=== PATIENT | male | born 1950 | race Caucasian/White ===

== ENCOUNTER → 2019-10-03 10:22 | Outpatient (CLI) | payer MEDICARE, BC | END | disposition home or self-care (01) | LOC: D.HCCARDIO 10-01 11:00 | PROVIDERS: ATTEND Internal Medicine Cardiovascular Disease | DX: R07.9 Chest pain, unspecified (principal) ==

== ENCOUNTER 2019-10-11 10:48 | Outpatient (CLI) | payer MEDICARE, BC ==
[~2019-10-11] VITALS: Ht 185.4 cm; Wt 81.4 kg
--- NOTE | ~2019-10-11 | HEMODYNAMI ---
PATIENT:KHANH WILEY MEDICAL RECORD: [id number] : 46 LOCATION:[facility] ADMISSION DATE: 10/11/19 Generatedon:10/11/201913:32 Patient name: KHANH WILEY Patient #: [id number] SSN: [id number] : 1950 Date of study: 10/11/2019 Page: Of Hemodynamic Procedure Report Patient Data Patient Demographics Procedure consent was obtained First Name: KHANH Gender: Male Last Name: SAURABH : 1950 Middle Initial: SAMAN Age: 68 year(s) Patient #: [id number] Race: Unknown SSN: [id number] Additional ID: [id number] Contact details Address: [address] [place] [address] State: [place] City: [place] Zip code: [address] Past Medical History Allergies: No known allergies Admission Admission Data Admission Date: 10/11/2019 Admission Time: 10:48 Lab Results Lab Result Date: 10/11/2019 Lab Result Time: 0:00 Biochemistry Name Units Result Min Max BUN mg/dl 19 --(----)*- 7 18 Creatinine mg/dl 0.9 --(-*--)-- 0.6 1.3 eGFR ml/min 88.93932 -*(----)-- 90 120 NONAFRICAN CBC Name Units Result Min Max Hematocrit % 45.9 --(-*--)-- 42 54 Hemoglobin g/dl 15.1 --(-*--)-- 13.5 17.5 Procedure Procedure Types Cath Procedure Diagnostic Procedure C [facility] w/Coronaries Sedation Charges Moderate Sedation up to 15 minutes Procedure Description Procedure Date Procedure Date: 10/11/2019 Procedure Start Time: 13:19 Procedure End Time: 13:30 Procedure Staff Name Function Baljit Rubio MD Performing Physician Edna Perera RN Nurse Barby Ochoa RT Scrub Saskia Drew RT Monitor Procedure Data Cath Procedure Fluoroscopy Diagnostic fluoroscopy Total fluoroscopy Time: 1.4 time: 1.4 min min Diagnostic fluoroscopy Total fluoroscopy dose: 300 dose: 300 mGy mGy Contrast Material Contrast Material Type Amount (ml) Isovue 300 48 Entry Location Entry Primary Successful Side Size Upsize Upsize Entry Closure Collins ccessful Closure Location (Fr) 1 (Fr) 2 (Fr) Remarks Device Remarks Radial Right 6 Fr Mechanical artery Short Compression Estimated blood loss: 5 ml Diagnostic catheters Device Type Used For End Catheter Placement DIAGNOSTIC [place] 110cm 5 Procedure Fr catheter ([id number]) Procedure Complications No complications Procedure Medications Medication Administration Route Dosage 0.9% NaCl I.V. 100 ml/hr Oxygen etCO2 Nasal cannula 2 l/min Lidocaine 2% added to field 20 Heparin Flush Bag added to field 2 bags (1000units/500ml NS) Radial Cocktail added to field 1 syringe (Verapamil 2mg/Nitro 400mcg/Heparin 1500units) Versed I.V. 2 mg Fentanyl I.V. 50 mcg Hemodynamics Rest HGB: 15.1 (g/dl) Heart Rate: 56 (bpm) Pressure Samples Time Site Value (mmHg) Purpose Heart Use Rate(bpm) 13:23 LV 93/-14,-6 Snapshot 66 13:23 LV 94/1,2 Snapshot 66 13:23 AO 91/65(78) Pullback 66 13:23 LV 82/2,8 Pullback 66 Gradients Valve Time Site 1 Site 2 Mean SEP/DFP Peak To Heart Use (mmHg) (sec/min) Peak Rate (mmHg) (bpm) Aortic 13:23 LV AO 0 66 82/2,8 91/65(78) Calculations Valve P-P Mean Valve Index Valve Source Name Gradient Area Flow (cm2) Aortic 0 0 Snapshots Pre Cath Intra NCS Post Cath Vital Signs Time Heart Resp SPO2 etCO2 NIBP Rhythm Pain Sedation Rate (ipm) (%) (mmHg) (mmHg) Status Level (bpm) 13:06:01 61 15 100 31.8 110/64(88) NSR 0 (11) 10(A) , No pain 13:10:10 53 27 96 29.6 114/62(87) SB 0 (11) 10(A) , No pain 13:14:22 55 10 97 30.4 107/59(82) SB 0 (11) 10(A) , No pain 13:18:30 60 17 98 26 113/64(89) NSR 0 (11) 9(A) , No pain 13:22:46 68 16 99 13.7 92/49(75) NSR 0 (11) 9(A) , No pain 13:26:50 57 20 97 19.9 112/59(83) SB 0 (11) 10(A) , No pain 13:31:02 55 7 98 0 111/59(82) SB 0 (11) 10(A) , No pain Medications Time Medication Route Dose Verified Delivered Reason Notes E ffectiveness by by 13:05:44 0.9% NaCl I.V. 100 Baljit Edna used for ml/hr RamiroKhanh Perera procedure MD GIBSON 13:05:50 Oxygen etCO2 2 l/min Baljit Mataa used for Nasal Ramiro Trever procedure cannula MD GIBSON 13:05:54 Lidocaine 2% added 20ml Baljit Baljit for local to vial [facility] anesthetic field MD MAJOR 13:05:58 Heparin Flush added 2 bags Baljit Smiley used for Bag to [facility] procedure (1000units/500ml field MD MAJOR NS) 13:06:03 Radial Cocktail added 1 Baljit Baljit used for ([facility]amil to [facility]/Nitro field MD MAJOR 400mcg/Heparin 1500units) 13:14:05 Versed I.V. 2 mg Baljit Edna for [facility] Khanh Perera sedation MD GIBSON 13:14:13 Fentanyl I.V. 50 mcg Baljit Bishop for [facility] Khanh Perera sedation MD GIBSONfiscal officer Log Time Note 12:37:18 Informed consent obtained and on chart 12:39:32 Procedure Status Elective Heart Cath (OP). 12:39:33 Time tracking: Regular hours (M-F 7:00 - 5:00) 12:39:38 Plan of Care:Hemodynamics will remain stable., Cardiac rhythm will remain stable., Comfort level will be maintained., Respiratory function will remain adequate., Patient/ family verbilizes understanding of procedure., Procedure tolerated without complication., Recovers from procedure without complications.. 12:49:25 Patient allergic to No known allergies 12:50:10 Lab Result : BUN 19 mg/dl 12:50:10 Lab Result : Creatinine 0.9 mg/dl 12:50:10 Lab Result : eGFR NONAFRICAN 88.15794 ml/min 12:50:10 Lab Result : Hemoglobin 15.1 g/dl 12:50:10 Lab Result : Hematocrit 45.9 % 12:50:18 Barby Ochoa RT(R) sent for patient. Start room use. 13:04:52 Patient received from Pre/Post Procedure Room to CCL 1 Alert and oriented. Tansferred to table in Supine position. 13:04:52 Warm blankets applied, and omaira hugger turned on for patient comfort. 13:04:53 Correct patient and procedure confirmed by team. 13:04:53 ECG and BP/O2 sat monitors applied to patient. 13:04:54 Vital chart was started 13:04:58 Baseline sample Acquired. 13:05:01 Rhythm: sinus bradycardia 13:05:02 Full Disclosure recording started 13:05:09 H&P Date Dictated: 09/26/2019 Within 30 days and on chart., H&P Addendum completed by physician on day of procedure. (MUST COMPLETE FOR ALL OUTPATIENTS). 13:05:09 Pre-procedure instructions explained to patient. 13:05:10 Pre-op teaching completed and patient verbalized understanding. 13:05:12 Family AVAILABLE WITH PHONE CALL 13:05:28 Patient NPO since Midnight. 13:05:33 Is the patient allergic to Iodine/contrast media? No. 13:05:35 Is patient on blood thinner?No 13:05:39 Patient diabetic? No. 13:05:42 Previous problem with sedation/anesthesia? No ? 13:05:44 0.9% NaCl 100 ml/hr I.V. was administered by Edna Perera RN; used for procedure; Verbal order read back and verified. 13:05:50 Oxygen 2 l/min etCO2 Nasal cannula was administered by Edna Perera RN; used for procedure; Verbal order read back and verified. 13:05:54 Lidocaine 2% 20ml vial added to field was administered by Baljit Rubio MD; for local anesthetic; Verbal order read back and verified. 13:05:58 Heparin Flush Bag (1000units/500ml NS) 2 bags added to field was administered by Baljit Rubio MD; used for procedure; Verbal order read back and verified. 13:06:03 Radial Cocktail (Verapamil 2mg/Nitro 400mcg/Heparin 1500units) 1 syringe added to field was administered by Baljit Rubio MD; used for procedure; Verbal order read back and verified. 13:07:28 Snore? Yes 13:07:29 Sleep apnea? No 13:07:31 Deviated septum? No 13:07:31 Opens mouth fully? Yes 13:07:32 Sticks out tongue? Yes 13:07:34 Airway obstruction? No ? 13:07:37 Dentures? No ? 13:07:40 Pre procedure: right dorsailis pedis pulse 2+ Normal; easily identifiable; not easily obliterated 13:07:44 Modified Fuentes's test Ulnar < 7 seconds 13:07:46 Patient pain scale 0/10 ?. 13:07:51 IV patent on arrival in left hand with 0.9% NaCl at [facility]. 13:07:53 Lab results completed and on chart. 13:07:58 Right Radial & Right Groin area was prepped with chlora-prep and draped in sterile fashion 13:08:00 Alarms reviewed by R. N. 13:08:00 Sharps counted by scrub and verified by R.N. 13:09:05 Use device set Radial Dx or PCI 13:09:07 ACIST Syringe (19258) opened to sterile field. 13:09:08 Bag Decanter (2002S) opened to sterile field. 13:09:08 ACIST Hand Control (67405) opened to sterile field. 13:09:09 ACIST Manifold (87205) opened to sterile field. 13:09:09 Tegaderm 4 x 4 (1626W) opened to sterile field. 13:09:10 Medline Cath Pack ([id number]) opened to sterile field. 13:09:11 MBrace Wrist Support (759163462) opened to sterile field. 13:09:12 EMERALD Guide Wire (871-960) opened to sterile field. 13:09:13 SHEATH 6FR RAIN (7350246) opened to sterile field. 13:13:09 --------ALL STOP TIME OUT------ 13:13:10 Final Timeout: patient, procedure, and site verified with staff and physician. All members of the team are in agreement. 13:13:11 Right Radial & Right Groin site verified by team. 13:13:14 Fire Safety Assessment: A--An alcohol-based skin anteseptic being used preoperatively., C--Open oxygen or nitrous oxide is being used., D--An ESU, laser, or fiber-optic light is being used. 13:13:16 Physical assessment completed. ASA score P 2 - A patient with mild systemic disease as per Baljit Rubio MD. 13:13:19 2) 60-89 Mildly reduced kidney function, and other findings (as for stage 1) point to kidney disease. 13:13:22 Maximum allowable contrast dose (3.7 X eGFR X 0.75)247 ml. 13:13:25 Sedation plan: IV Moderate Sedation Medication:Versed, Fentanyl 13:14:05 Versed 2 mg I.V. was administered by dEna Perera RN; for sedation; Verbal order read back and verified. 13:14:13 Fentanyl 50 mcg I.V. was administered by Edna Perera RN; for sedation; Verbal order read back and verified. 13:18:11 Zero performed for pressure channel P1 13:19:13 Procedure started. 13:19:33 Local anesthetic to right radial artery with Lidocaine 2% by Baljit Rubio MD.INITIAL ACCESS ONLY 13:21:02 A 6 Fr Short sheath was inserted into the Right Radial artery 13:21:11 A DIAGNOSTIC [place] 110cm 5 Fr catheter (694627) was advanced over the wire and used for Procedure. 13:22:54 LV gram done using BANKS 13:22:56 Injector settings: Ml/sec: 5, Volume: 15, 13:23:22 LV hemodynamics recorded. 13:23:37 EF : 50 % 13:24:47 LCA angiography performed. 13:25:03 RCA angiography performed. 13:25:08 Catheter removed. 13:25:11 ZEPHYR REGULAR TR BAND (569664) opened to sterile field. 13:26:57 Procedure ended.(Physican Out) 13:27:06 Sheath removed intact; hemostasis achieved with Mechanical Compression to the Right Radial artery. 13::59 Fluoroscopy dose: 300 mGy 13::59 Flurop Dose total: 300 13:29:06 Dose Area Product 49945 mGy/cm. 13:29:08 Contrast amount:Isovue 300 48ml. 13:29:13 Fluoroscopy time 01.40 minutes. 13:29:19 Maximum allowable dose exceeded? No. 13:29:21 Sharps counted by scrub and verified by R.N. 13:29:31 Lucama band inflated with 10cc of air. 13:29:35 Post-procedure physical assessment completed. ASA score P 2 - A patient with mild systemic disease as per Baljit Rubio MD. 13:29:37 Post procedure rhythm: unchanged. 13:29:41 Estimated blood loss: 5 ml 13:29:42 Post procedure instruction explained to patient.Patient verbalizes understanding. 13:29:42 Patient needs reinforcement of post procedure teaching. 13:30:05 Procedure type changed to Cath procedure, Diagnostic procedure, LHC, LHC w/Coronaries, Sedation Charges, Moderate Sedation up to 15 minutes 13:30:38 Procedure and supply charges have been captured, reviewed, submitted and are correct. 13:30:41 Procedure Complication : No complications 13:30:42 Vital chart was stopped 13:30:43 [facility] Findings: mild to moderate CAD (<70%) 13:30:45 Operative report dictated upon procedure completion. 13:30:45 See physician's report for complete and final results. 13:30:48 Report given to Pre/Post Procedure Room. 13:30:50 Patient transfered to Pre/Post Procedure Room with Bed. 13:30:52 Procedure ended. 13:30:52 Full Disclosure recording stopped 13:30:56 End room use (Document Last) 13:31:57 End room use (Document Last) 13:32:12 End room use (Document Last) Device Usage Item Name Manufacture Quantity Catalog Hospital Part Current Minima l Lot# / Number Charge Number Stock Stock Serial# Code ACIST Acist 1 53100 [id number] 986216 [id number] 20 Syringe Medical (47776) Systems Inc Bag Microtek 1 629859 99136 725050 5 Decanter Medical Inc. () ACIST Hand Acist 1 54357 162970 293765 206668 5 Control Medical (42896) Systems Inc ACIST Acist 1 89649 033004 220986 325946 5 Manifold Medical (09386) Systems Inc Tegaderm 4 3M 1 1626W 156134 645265 990617 5 x 4 (1626W) Medline Medline 1 [id number] 368146 24242 692683 5 Cath Pack ([id number]) MBrace Advanced 1 140-0250-00 522862 33928 774254 5 Wrist Vascular Support Dynamics ([id number]) EMERALD Cardinal 1 858-066 154224 284801 902788 5 Guide Wire Health (058-277) SHEATH 6FR Cardinal 1 1531293 516475 8749430 241374 5 [facility] (5874850) DIAGNOSTIC Terumo 1 40-5910 235823 595281 694850 5 [place] 110cm 5 Fr catheter (831065) ZEPHYR Cardinal 1 841481 196013 3586089 901348 5 REGULAR TR Health BAND (150875) Signature Audit [place] Stage Time Signature Unsigned Intra-Procedure 10/11/2019 Saskia Drew 1:31:57 PM RT(R) Intra-Procedure 10/11/2019 Edna Perera 1:32:12 PM RN Intra-Procedure 10/11/2019 Baljit Singh 1:32:38 PM Khanh MAJOR [facility] [address] [place] [address]
[2019-10-11 11:29] VITALS: BP 130/65; Ht 185.4 cm; Wt 81.4 kg
[2019-10-11 11:30] LABS: BASOPHILS 0.3 % (0-2); EOSINOPHILS 1.6 % (0-7); HEMATOCRIT 45.9 % (42.0-54.0); HEMOGLOBIN 15.1 g/dL (13.5-17.5); IMMATURE GRANULOCYTES 0.3 % (0-5); LYMPHOCYTES 27.9 % (15-50); MCH 30.3 pg (26.0-34.0); MCHC 32.9 g/dL (31.0-37.0); MEAN PLATELET VOLUME 8.9 fL (7.4-10.4); MONOCYTES 8.7 % (2-11); NEUTROPHILS 61.2 % (40-80); PLATELET COUNT 215 10x3/uL (130-400); RBC 4.99 10x6/uL (4.20-6.10); RDW 13.2 % (11.5-14.5); WBC 5.7 10x3/uL (4.8-10.8)
[2019-10-11 11:44] LABS: ALT (SGPT) 34 U/L (10-68); CALC OSMOLALITY 280 mosm/kg (275-300); CALCIUM 8.8 mg/dL (8.5-10.1); CARBON DIOXIDE 26.1 mmol/L (21.0-32.0); CHLORIDE - SERUM 104 mmol/L (98-107); CHOL - HDL RATIO 4.9 ratio (2.3-4.9); CHOLESTEROL, TOTAL 214 mg/dL (0-200); CREATININE - SERUM 0.9 mg/dL (0.6-1.3); GLUCOSE 97 mg/dL (74-106); HDL CHOLESTEROL 44 mg/dL (32-96); LDL CHOLESTEROL 151 mg/dL (0-100); LDL-HDL RATIO 3.4 ratio (1.5-3.5); POTASSIUM - SERUM 4.1 mmol/L (3.5-5.1); SODIUM 140 mmol/L (136-145); TRIGLYCERIDE 99 mg/dL (30-200); UREA NITROGEN 19 mg/dL (7-18); eGFR NON AFRICAN AMERICAN 89 mL/min (90-120)
--- NOTE | 2019-10-11 13:39 | NUR ---
PT ARRIVED BY STRETCHER. PLACED ON MONITORS. ASSESSMENT COMPLETED. VSS AT THIS TIME. CALL LIGHT WITHIN REACH.
--- NOTE | 2019-10-11 13:55 | NUR ---
PT RESTING COMFORTABLY. VSS. RIGHT WRIST Z BAND IN PLACE. NO BLEEDING/HEMATOMA NOTED. CALL LIGHT WITHIN REACH. NO NEEDS AT THIS TIME.
--- NOTE | 2019-10-11 14:25 | NUR ---
PT RESTING COMFORTABLY. VSS. RIGHT WRIST Z BAND IN PLACE. NO BLEEDING/HEMATOMA NOTED. CALL LIGHT WITHIN REACH.
--- NOTE | 2019-10-11 14:40 | NUR ---
1cc OF AIR REMOVED FROM Z BAND. NO BLEEDING/HEMATOMA NOTED. CALL LIGHT WITHIN REACH. PT SET UP WITH SANDWICH TRAY AND DRINK. DENIES NAUSEA/PAIN AT THIS TIME. VSS.
--- NOTE | 2019-10-11 14:53 | NUR ---
3cc OF AIR REMOVED FROM Z BAND. NO BLEEDING/HEMATOMA NOTED. CALL LIGHT WITHIN REACH. VSS AT THIS TIME.
--- NOTE | 2019-10-11 15:05 | NUR ---
4cc OF AIR REMOVED FROM Z BAND. NO BLEEDING/HEMATOMA NOTED. CALL LIGHT WITHIN REACH. VSS AT THIS TIME.
--- NOTE | 2019-10-11 15:15 | NUR ---
Z BAND REMOVED AND DRESSING APPLIED. NO BLEEDING/HEMATOMA NOTED. PIV D/C'D WITH CATH TIP INTACT. PT INSTRUCTED TO GET UP AND DRESSED AT THIS TIME.
--- NOTE | 2019-10-11 15:20 | NUR ---
DISCUSSED DISCHARGE INSTRUCTIONS WITH PT. HE VOICED UNDERSTANDING.
--- NOTE | 2019-10-11 15:30 | NUR ---
RIGHT WRIST DRESSING C/D/I. NO S/S OF HEMATOMA NOTED. PT TAKEN DOWN TO VEHICLE BY WHEELCHAIR. NO S/S OF DISTRESS NOTED. ALL BELONGINGS AND PAPERWORK IN HAND. DISCUSSED DISCHARGE INSTRUCTIONS WITH PT'S AT THIS TIME.
--- NOTE | 2019-10-12 09:22 | OP ---
PATIENT NAME: KHANH WILEY MEDICAL RECORD: [id number] :46 LOCATION:D.CAT ADMISSION DATE: SURGEON: OVI GAMEZ MD DATE OF OPERATION: 10/11/2019 PROCEDURE: Left heart catheterization, selective coronary angiography, right radial approach. CATHETERS: Radial sheath, Kennan catheter. The procedure was well tolerated. The patient was returned to the christie. Sheath was removed. TR band was placed. FINDINGS: Left ventriculography in 30-degree BANKS view: Normal wall motion, normal systolic function. CORONARY ANATOMY: LEFT MAIN: Left main is free of disease. LAD: LAD is free of disease in the diagonal system. CIRCUMFLEX: Codominant system, free of disease. RIGHT CORONARY ARTERY: Again, codominant, free of disease. IMPRESSION: Normal LV systolic function, normal coronary anatomy. TRANSINT:[id number] Voice Confirmation ID: [id number] DOCUMENT ID: [id number] OVI GAMEZ MD at 0922 CC: [id number] DICTATION DATE: 10/11/19 1332 NARROW FABRIC LOOM FIXER: 10/11/19 1340 DEP CLI 10/11/[address] [facility] [address] [place] [id number]
== END 2019-10-11 15:30 | disposition home or self-care (01) ==
LOC: D.CATH 10:48
PROVIDERS: ATTEND Internal Medicine Interventional Cardiology
DX: R01.1 Cardiac murmur, unspecified (principal); I20.9 Angina pectoris, unspecified; R94.31 Abnormal electrocardiogram [ECG] [EKG]